=== PATIENT | male | born 1950 | race African-American/Black ===

== ENCOUNTER 2018-03-18 02:51 | Emergency (ER) | payer OTHER ==
[~2018-03-18] VITALS: Ht 190.5 cm; Wt 88.5 kg
[2018-03-18 03:06] VITALS: BP 144/82
[2018-03-18] MEDS ORDERED: MOBIC15 MG PO (04:07)
== END 2018-03-18 05:04 | disposition home or self-care (01) ==
LOC: ER 02:51
DX: R10.32 Left lower quadrant pain (principal); R05 Cough; R06.7 Sneezing; F17.210 Nicotine dependence, cigarettes, uncomplicated